=== PATIENT | male | born 1975 | race Hispanic/Latino ===

== ENCOUNTER 2024-10-05 20:31 | Emergency (ER) | payer BC ==
[~2024-10-05] VITALS: Ht 165.1 cm; Wt 102.5 kg
[2024-10-05] MEDS ORDERED: ACETAMINOPHEN 325 MG TAB ONE (22:08)
[2024-10-05] MEDS: SODIUM CHLORIDE 0.9% 1000ML 1,000 ML IV ONE ×2 (22:40→22:41)
[2024-10-05] MEDS: ACETAMINOPHEN 325 MG TAB PO ONE (22:40)
[2024-10-05] MEDS: KETOROLAC TROMETHAMINE 30 MG/ML VIAL IV STA (22:43)
[2024-10-05 22:54] VITALS: PULSE 101; RESP 12; TEMP 98; O2SAT 99
[2024-10-05] MEDS ORDERED: DOXYCYCLINE HY100 MG PO (22:58)
[2024-10-06] MEDS: DOXYCYCLINE HYCLATE TABLET 100 MG TAB PO ONE (02:07)
[2024-10-08] MEDS ORDERED: FARXIGA10 MG PO (16:45)
[2024-10-08] MEDS ORDERED: NORVASC10 MG PO (16:46)
== END 2024-10-05 23:18 | disposition home or self-care (01) ==
LOC: FSED 20:49
DX: R50.9 Fever, unspecified (principal); J18.9 Pneumonia, unspecified organism; E11.65 Type 2 diabetes mellitus with hyperglycemia; I10 Essential (primary) hypertension; Z11.52 Encounter for screening for COVID-19
CPT/HCPCS: 0223U; 71046; 80053; 85025; 87400; 99284; J1885; J7030

== ENCOUNTER → 2025-02-16 | Outpatient (REF) | payer BC ==
[~2025-02-16] MED LIST: ACYCLOVIR15 GM TOP; DOXYCYCLINE HY100 MG PO; FARXIGA10 MG PO; NORVASC10 MG PO; ONDANSETRON ODT4 MG PO; VALTREX500 MG PO
== END ==
LOC: DX 08:37
PROVIDERS: ATTEND Surgery
DX: K57.32 Diverticulitis of large intestine without perforation or abscess without bleeding (principal)
CPT/HCPCS: 74280

== ENCOUNTER 2025-03-02 07:24 | Inpatient (IN) | payer BC ==
[2025-02-26 15:10] LABS: BASOPHILS # (AUTO) 0.1 (0.0-0.1); BASOPHILS % 0.7 % (0.0-1.0); EOSINOPHILS # (AUTO) 0.4 (0.0-0.4); EOSINOPHILS % 4.1 % (0.0-6.0); HEMATOCRIT 52.5 % (38.2-49.6); HEMOGLOBIN 17.4 g/dL (14.0-18.0); LYMPHOCYTES # (AUTO) 3.7 (1.0-3.2); LYMPHOCYTES % 35.2 % (18.0-39.1); MEAN CORPUSCULAR HEMOGLOBIN 29.4 pg (28-32); MEAN CORPUSCULAR HGB CONC 33.1 g/dL (31-35); MEAN CORPUSCULAR VOLUME 88.8 fL (81-99); MONOCYTES # (AUTO) 0.8 (0.2-0.8); MONOCYTES % 7.7 % (4.4-11.3); NEUTROPHILS # (AUTO) 5.5 (2.1-6.9); NEUTROPHILS % 51.9 % (38.7-80.0); PLATELET COUNT 340 x10e3/uL (140-360); RED BLOOD COUNT 5.91 x10e6/uL (4.3-5.7); RED CELL DISTRIBUTION WIDTH 12.6 % (11.7-14.4); WHITE BLOOD COUNT 10.61 x10e3/uL (4.8-10.8)
[~2025-03-02] VITALS: Ht 165.1 cm; Wt 101.6 kg
[~2025-03-02 07:24] MED LIST changes: +NAPROXEN250 MG PO; +OZEMPIC2 MG/0.75 SC
[2025-03-02] MEDS ORDERED: SOD PHOSPHATE/SOD BIPHOSPHATE ENEMA 132 ML BTL PR ONE (09:00)
[2025-03-02 09:41] LABS: ALBUMIN 4.6 g/dL (3.5-5.0); ALBUMIN/GLOBULIN RATIO 1.6 (0.8-2.0); ANION GAP 16.6 mmol/L (8-16); BILIRUBIN,TOTAL 1.3 mg/dL (0.2-1.2); CALCIUM 9.4 mg/dL (8.4-10.2); POTASSIUM 4.6 mmol/L (3.5-5.1); TOTAL PROTEIN 7.5 g/dL (6.5-8.1)
[2025-03-02] MEDS ORDERED: PROPOFOL IV EMULSION 10 MG/ML 20 ML VIAL ONE (10:39)
[2025-03-02] MEDS ORDERED: ROCURONIUM BROMIDE 1 ML IV ONE ×2 (10:39→11:44)
[2025-03-02] MEDS ORDERED: DEXAMETHASONE SOD PHOS INJ 4 MG/ML SDV ONE (10:39)
[2025-03-02] MEDS: LACTATED RINGER'S 1,000 ML ONE (10:39)
[2025-03-02] MEDS ORDERED: MIDAZOLAM HCL 2 MG/2 ML VIAL ONE (10:39)
[2025-03-02] MEDS ORDERED: LIDOCAINE HCL 2% LOCAL INJ 5 ML SDV VIAL INJ ONE (10:39)
[2025-03-02] MEDS ORDERED: FENTANYL CITRATE/PF 100MCG/2 ML INJ ONE ×3 (10:39→11:56)
[2025-03-02] MEDS ORDERED: ONDANSETRON HCL INJ 2MG/ML 2ML 2 MG/ML VIAL ONE (10:40)
[2025-03-02] MEDS ORDERED: ACETAMINOPHEN 1000 MG/100 ML 100 ML IV ONE (10:45)
[2025-03-02] MEDS ORDERED: SUGAMMADEX SODIUM 200 MG/2 ML VIAL IV ONE (11:44)
[2025-03-02] MEDS ORDERED: NALOXONE HCL INJ 0.4 MG/ML AMP IV PRN (15:00)
[2025-03-02] MEDS ORDERED: ACETAMINOPHEN 1000 MG/100 ML IV PRN (15:00)
[2025-03-02] MEDS: SODIUM CHLORIDE 0.9% 1000ML 1,000 ML IV SCH (15:30)
[2025-03-02] MEDS: HYDROMORPHONE 0.2MG/ML-SOD CHL 30ML PCA SYRINGE IV ONE (15:30)
[2025-03-02] MEDS ORDERED: SEVOFLURANE INHAL SOLN 250 ML PEN BTL ONE (15:41)
[2025-03-02 16:06] VITALS: BP 137/86; PULSE 94; RESP 17; TEMP 97.3
[2025-03-02 16:31] VITALS: BP 137/86; PULSE 94; RESP 17; TEMP 97.3; O2SAT 96
[2025-03-02 16:43] VITALS: PULSE 96; RESP 18; O2SAT 100
[2025-03-02] MEDS: INSULIN REGULAR, HUMAN 100 UNIT/1 ML SQ SCH (18:00)
[2025-03-02] MEDS: SODIUM CHLORIDE 0.9% 250ML IRRIG IR SCH (18:30)
[2025-03-02 18:55] VITALS: PULSE 92; RESP 18; O2SAT 93
[2025-03-02 20:00] VITALS: BP 134/82; PULSE 101; RESP 16; TEMP 97.3; O2SAT 95
[2025-03-02] MEDS: HYDROMORPHONE 0.2MG/ML-SOD CHL 30ML PCA SYRINGE IV PRN (22:18)
[2025-03-03] VITALS (7 sets, daily range): BP systolic 125–144; BP diastolic 77–92; PULSE 82–100; RESP 18–21; TEMP 97.2–98.5; O2SAT 95–98
[2025-03-03 05:10] LABS: BASOPHILS % 0.1 % (0.0-1.0); EOSINOPHILS % 0.1 % (0.0-6.0); HEMOGLOBIN 15.6 g/dL (14.0-18.0); LYMPHOCYTES # (AUTO) 1.4 (1.0-3.2); LYMPHOCYTES % 7.7 % (18.0-39.1); MEAN CORPUSCULAR HEMOGLOBIN 29.8 pg (28-32); MEAN CORPUSCULAR HGB CONC 32.5 g/dL (31-35); MEAN CORPUSCULAR VOLUME 91.6 fL (81-99); MONOCYTES # (AUTO) 1.2 (0.2-0.8); MONOCYTES % 6.3 % (4.4-11.3); NEUTROPHILS # (AUTO) 15.8 (2.1-6.9); NEUTROPHILS % 85.3 % (38.7-80.0); PLATELET COUNT 354 x10e3/uL (140-360); RED BLOOD COUNT 5.24 x10e6/uL (4.3-5.7); RED CELL DISTRIBUTION WIDTH 12.4 % (11.7-14.4); WHITE BLOOD COUNT 18.56 x10e3/uL (4.8-10.8)
[2025-03-03 05:37] LABS: ANION GAP 19.3 mmol/L (8-16); CALCIUM 8.5 mg/dL (8.4-10.2); CREATININE, SERUM 1.56 mg/dL (0.72-1.25)
[2025-03-03 05:44] LABS: POTASSIUM 5.3 mmol/L (3.5-5.1)
[2025-03-03] MEDS: ROPIVACAINE/EPI/CLONIDINE/KET 50 ML SYRINGE INJ ONE (09:02)
[2025-03-04] VITALS (8 sets, daily range): BP systolic 127–148; BP diastolic 78–93; PULSE 84–102; RESP 18–20; TEMP 98.1–98.8; O2SAT 93–98
[2025-03-04 05:26] LABS: BASOPHILS % 0.2 % (0.0-1.0); EOSINOPHILS # (AUTO) 0.1 (0.0-0.4); EOSINOPHILS % 0.7 % (0.0-6.0); HEMATOCRIT 43.8 % (38.2-49.6); HEMOGLOBIN 14.3 g/dL (14.0-18.0); LYMPHOCYTES # (AUTO) 2.6 (1.0-3.2); LYMPHOCYTES % 15.9 % (18.0-39.1); MEAN CORPUSCULAR HEMOGLOBIN 29.7 pg (28-32); MEAN CORPUSCULAR HGB CONC 32.6 g/dL (31-35); MEAN CORPUSCULAR VOLUME 90.9 fL (81-99); MONOCYTES # (AUTO) 1.2 (0.2-0.8); NEUTROPHILS # (AUTO) 12.5 (2.1-6.9); NEUTROPHILS % 75.7 % (38.7-80.0); PLATELET COUNT 316 x10e3/uL (140-360); RED BLOOD COUNT 4.82 x10e6/uL (4.3-5.7); RED CELL DISTRIBUTION WIDTH 12.7 % (11.7-14.4); WHITE BLOOD COUNT 16.48 x10e3/uL (4.8-10.8)
[2025-03-04 05:51] LABS: ANION GAP 15.1 mmol/L (8-16); CALCIUM 8.6 mg/dL (8.4-10.2); CREATININE, SERUM 0.92 mg/dL (0.72-1.25); POTASSIUM 4.1 mmol/L (3.5-5.1)
[2025-03-04] MEDS: BISACODYL 10 MG SUPP PR ONE ×2 (08:05→21:57)
[2025-03-04] MEDS: DIPHENHYDRAMINE HCL INJ 50 MG/ML VIAL IV PRN (12:34)
[2025-03-04] MEDS: HYDROCODONE/APAP 7.5MG-325MG 1 EA TAB PO PRN (13:37)
[2025-03-04] MEDS: ACETAMINOPHEN 1000 MG/100 ML IV PRN (16:19)
[2025-03-04] MEDS: LEVOFLOXACIN 500 MG TAB PO SCH (16:19)
[2025-03-04] MEDS: HYDROMORPHONE 1MG/1ML INJ IV PRN (17:47)
[2025-03-05] VITALS (8 sets, daily range): BP systolic 135–153; BP diastolic 79–95; PULSE 82–92; RESP 18–20; TEMP 97.2–99.2; O2SAT 95–98
[2025-03-05 05:38] LABS: BASOPHILS # (AUTO) 0.1 (0.0-0.1); BASOPHILS % 0.4 % (0.0-1.0); EOSINOPHILS # (AUTO) 0.4 (0.0-0.4); EOSINOPHILS % 3.5 % (0.0-6.0); HEMATOCRIT 43.7 % (38.2-49.6); HEMOGLOBIN 14.2 g/dL (14.0-18.0); LYMPHOCYTES # (AUTO) 3.1 (1.0-3.2); LYMPHOCYTES % 24.7 % (18.0-39.1); MEAN CORPUSCULAR HGB CONC 32.5 g/dL (31-35); MEAN CORPUSCULAR VOLUME 92.2 fL (81-99); MONOCYTES % 7.9 % (4.4-11.3); NEUTROPHILS % 63.2 % (38.7-80.0); PLATELET COUNT 263 x10e3/uL (140-360); RED BLOOD COUNT 4.74 x10e6/uL (4.3-5.7); RED CELL DISTRIBUTION WIDTH 12.6 % (11.7-14.4); WHITE BLOOD COUNT 12.58 x10e3/uL (4.8-10.8)
[2025-03-05 06:10] LABS: ANION GAP 15.2 mmol/L (8-16); CREATININE, SERUM 0.88 mg/dL (0.72-1.25); POTASSIUM 4.2 mmol/L (3.5-5.1)
[2025-03-05] MEDS: BISACODYL 10 MG SUPP PR ONE (10:29)
[2025-03-05] MEDS: ONDANSETRON HCL INJ 2MG/ML 2ML 2 MG/ML VIAL IV PRN (16:00)
[2025-03-06] VITALS (10 sets, daily range): BP systolic 130–175; BP diastolic 78–98; PULSE 73–84; RESP 16–20; TEMP 97.7–98.8; O2SAT 96–98
[2025-03-06] MEDS: BISACODYL 10 MG SUPP PR ONE (13:29)
[2025-03-06] MEDS: BISACODYL 10 MG SUPP PR SCH (21:43)
[2025-03-07 04:59] VITALS: BP 131/85; PULSE 69; RESP 20; TEMP 98.2; O2SAT 96
[2025-03-07 08:00] VITALS: BP 148/79; PULSE 72; RESP 18; TEMP 98; O2SAT 98
[2025-03-07 08:13] VITALS: BP 148/79; PULSE 72; RESP 18; TEMP 98; O2SAT 99
[2025-03-07 09:53] VITALS: BP 148/79; PULSE 72; RESP 18; TEMP 98; O2SAT 98
[2025-03-07 11:50] VITALS: BP 151/93; PULSE 71; RESP 18; TEMP 99; O2SAT 99
[2025-03-07 16:41] VITALS: BP 154/92; PULSE 78; RESP 18; TEMP 98.6; O2SAT 97
== END 2025-03-07 17:45 | disposition home or self-care (01) | DRG 330 ==
LOC: OR 07:24 → PACU V 15:00 → MED/SURG 16:08 → MED/SURG2 03-03 21:04
PROVIDERS: ADMIT Surgery; ATTEND Surgery
PROC: 0DNW0ZZ Release Peritoneum, Open Approach (ICD-10-PCS; 2025-03-02)
PROC: 0DN80ZZ Release Small Intestine, Open Approach (ICD-10-PCS; 2025-03-02)
PROC: 0DBE0ZZ Excision of Large Intestine, Open Approach (ICD-10-PCS; principal; 2025-03-02 11:09)
PROC: 0DSN0ZZ Reposition Sigmoid Colon, Open Approach (ICD-10-PCS; 2025-03-02 11:09)
DX: Z43.3 Encounter for attention to colostomy (principal); K56.7 Ileus, unspecified; K66.0 Peritoneal adhesions (postprocedural) (postinfection); I10 Essential (primary) hypertension; E11.9 Type 2 diabetes mellitus without complications; Z79.85 Long-term (current) use of injectable non-insulin antidiabetic drugs; Z79.84 Long term (current) use of oral hypoglycemic drugs; R23.2 Flushing; T40.2X5A Adverse effect of other opioids, initial encounter; Y92.230 Patient room in hospital as the place of occurrence of the external cause; Z87.19 Personal history of other diseases of the digestive system; Z79.899 Other long term (current) drug therapy
CPT/HCPCS: 36415; 80048; 80053; 82948; 85025; 88304; 88305; 93005; 94799; 96361; 99252; J0694; J1100; J1171; J1200; J2003; J2250; J2405; J2470; J7030